=== PATIENT | female | born 1960 | race Hispanic/Latino ===

== ENCOUNTER 2020-11-11 11:10 | Emergency (ER) | payer MEDICARE ==
[~2020-11-11] VITALS: Ht 162.6 cm; Wt 113.4 kg
[2020-11-11 12:50] VITALS: BP 143/87
== END 2020-11-11 12:55 | disposition home or self-care (01) ==
LOC: ER 11:37
DX: U07.1 COVID-19 (principal); Z88.6 Allergy status to analgesic agent
CPT/HCPCS: 99282